=== PATIENT | male | born 1950 | race Caucasian/White ===

== ENCOUNTER → 2017-02-16 | Outpatient (CLI) | payer OTHER ==
[~2017-02-16] MED LIST: AFRIN15 M1 NOSE; ASPIRIN (CHILDR81 MG PO; BRILINTA90 MG PO; CLINORIL200 MG PO; COREG12.5 MG PO; IBUPROFEN200 MG PO; INSPRA25 MG PO; LIPITOR80 MG PO; VASOTEC2.5 MG PO; ZYLOPRIM300 MG PO
[2017-02-16 17:37] LABS: BASOPHIL % 0.5 %; EOSINOPHIL # 0.3 K/uL (0.0-0.5); HEMATOCRIT 45.2 % (37.0-53.0); HEMOGLOBIN 15.5 g/dL (11.0-16.0); IMMATURE GRANULOCYTE % 0.2 %; LYMPHOCYTE % 24.3 %; MCH 33.3 pg (27.0-34.0); MCHC 34.3 gm/dL (32.0-36.5); MCV 97.2 fl (83.0-98.0); MONOCYTE % 11.4 %; MPV 10.3 fl (9.4-12.4); NEUTROPHIL # (ANC) 5.1 K/uL (1.4-9.0); NEUTROPHIL % 60.6 %; NRBC % 0 /100WBC (0-0.00); PLATELET COUNT 280 K/uL (150-450); RBC 4.65 M/uL (3.50-5.50); RDW-CV 12.5 % (11.9-14.6); WBC 8.4 K/uL (4.0-11.0)
[2017-02-16 17:59] LABS: ALBUMIN 3.5 gm/dL (3.5-5.0); ALK PHOS 74 IU/L (33-138); ALT 44 IU/L (12-78); AST 22 IU/L (10-40); BLOOD UREA NITROGEN 13 mg/dL (6-24); CALCIUM 8.5 mg/dL (8.5-10.5); CHLORIDE 107 mMol/L (96-110); CO2 24 mMol/L (22-32); CREATININE 0.8 mg/dL (0.6-1.3); ESTIMATED GFR (MDRD EQUATION) > 60; SODIUM 139 mMol/L (135-145); TOTAL BILIRUBIN 0.9 mg/dL (0.0-1.5)
== END | disposition disaster alternative care site (69) ==
LOC: LNHI 16:40
PROVIDERS: Internal Medicine Cardiovascular Disease
DX: I25.5 Ischemic cardiomyopathy (principal); R53.83 Other fatigue; E78.5 Hyperlipidemia, unspecified